=== PATIENT | male | born 2000 | race Caucasian/White ===

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

== ENCOUNTER 2022-07-23 15:33 | Emergency (ER) | payer MEDICAID ==
[~2022-07-23] VITALS: Ht 167.6 cm; Wt 85.0 kg
[2022-07-23] MEDS ORDERED: AZITTAB PO (18:51)
[2022-07-23 19:32] VITALS: BP 120/73
== END 2022-07-23 19:34 | disposition home or self-care (01) ==
LOC: ER 15:33
DX: J06.9 Acute upper respiratory infection, unspecified (principal); Z20.822 Contact with and (suspected) exposure to COVID-19
CPT/HCPCS: 36415; 71045; 87426; 87804

== ENCOUNTER 2022-08-28 09:12 | Emergency (ER) | payer MEDICAID ==
[~2022-08-28] VITALS: Ht 167.6 cm; Wt 84.8 kg
[~2022-08-28 09:12] MED LIST: AZITTAB PO
[2022-08-28 09:40] VITALS: BP 124/69
[2022-08-28] MEDS ORDERED: PRED20TA2 PO (09:45)
[2022-08-28] MEDS ORDERED: PROM1SOL4 PO (09:45)
== END 2022-08-28 10:01 | disposition home or self-care (01) ==
LOC: ER 09:12
DX: J06.9 Acute upper respiratory infection, unspecified (principal)

== ENCOUNTER 2022-11-02 10:50 | Emergency (ER) | payer MEDICAID, OTHER ==
[~2022-11-02] VITALS: Ht 172.7 cm; Wt 86.5 kg
[~2022-11-02 10:50] MED LIST changes: +PRED20TA2 PO; +PROM1SOL4 PO
[2022-11-02 11:27] VITALS: BP 133/79
[2022-11-02] MEDS ORDERED: methylPREDNISolone SOD SUCC 125 MG/2 ML VL IM ONE (11:30)
[2022-11-02] MEDS ORDERED: IBUPROFEN 800 MG TAB PO ONE ×2 (11:30→11:53)
[2022-11-02] MEDS ORDERED: cefTRIAXone SOD 1,000 MG VL IM ONE (11:45)
[2022-11-02] MEDS ORDERED: cefTRIAXone SOD 1,000 MG VL ONE (11:52)
[2022-11-02] MEDS ORDERED: IBUP800T27 PO (12:23)
[2022-11-02] MEDS ORDERED: PRED20TA2 PO (12:23)
[2022-11-02] MEDS ORDERED: AMOX875T3 PO (12:23)
== END 2022-11-02 12:32 | disposition home or self-care (01) ==
LOC: ER 10:50
DX: J01.90 Acute sinusitis, unspecified (principal)
CPT/HCPCS: 96372; 99283; J0696

== ENCOUNTER 2022-12-12 15:41 | Emergency (ER) | payer OTHER ==
[~2022-12-12] VITALS: Ht 170.2 cm; Wt 89.2 kg
[~2022-12-12 15:41] MED LIST changes: +AMOX875T3 PO; +IBUP800T27 PO
[2022-12-12] MEDS ORDERED: DexAMETHasone SOD PHOS 10MG/1ML VIAL INJ IM ONE (16:15)
[2022-12-12] MEDS ORDERED: BENZ100C19 PO (18:32)
[2022-12-12] MEDS ORDERED: IBUP800T26 PO (18:32)
[2022-12-12] MEDS ORDERED: LORA10CA7 PO (18:32)
[2022-12-12 18:50] VITALS: BP 140/65
== END 2022-12-12 18:50 | disposition home or self-care (01) ==
LOC: ER 15:49
DX: J03.90 Acute tonsillitis, unspecified (principal); B97.89 Other viral agents as the cause of diseases classified elsewhere; R07.89 Other chest pain; Z79.1 Long term (current) use of non-steroidal anti-inflammatories (NSAID); Z79.2 Long term (current) use of antibiotics; Z79.899 Other long term (current) drug therapy
CPT/HCPCS: 71046; 87070; 87880; 96372; 99284; J1100

== ENCOUNTER 2023-07-20 12:46 | Emergency (ER) | payer OTHER ==
[~2023-07-20] VITALS: Ht 165.1 cm; Wt 79.8 kg
[~2023-07-20 12:46] MED LIST changes: +BENZ100C19 PO; +IBUP-1455 PO; +IBUP-1456 PO; -IBUP800T27 PO; +LORA10CA PO
[2023-07-20 14:10] VITALS: BP 113/71; PULSE 130; RESP 18; TEMP 98.5; O2SAT 97
[2023-07-20 15:05] LABS: Eosinophils # (auto) 0 10 ^3/uL (0-0.8)
[2023-07-20 15:08] LABS: Basophils # (auto) 0.1 10 ^3/uL (0-0.2); Basophils % (auto) 0.7 % (0.0-2.0); Eosinophils % (auto) 0.4 % (0.0-7.0); Hemoglobin 16.5 g/dL (13.5-17.5); Lymphocytes # (auto) 0.8 10 ^3/uL (0.4-5.4); Lymphocytes % (auto) 9.9 % (10.0-50.0); Mean Corpuscular Hemoglobin 31.3 pg (28.0-32.0); Mean Corpuscular Hgb Conc. 33.6 g/dL (32.0-36.0); Mean Corpuscular Volume 93.2 fL (80.0-100.0); Monocytes # (auto) 1.3 10 ^3/uL (0-1.3); Monocytes % (auto) 16.5 % (0.0-12.0); Neutrophils # (auto) 5.5 10 ^3/uL (1.6-8.6); Neutrophils % (auto) 72.5 % (37.0-80.0); Nucleated Red Blood Cells % 0.1 %; Red Blood Cells 5.26 10^6/uL (4.5-5.90); Red Cell Distribution Width 12.7 % (11.8-14.3); White Blood Cell 7.6 10^3/uL (4.4-10.8)
[2023-07-20 15:35] LABS: Alanine Aminotransferase 27 U/L (7-40); Albumin 4.7 g/dL (3.2-4.8); Alkaline Phosphatase 62 U/L (46-116); Anion Gap 7 (5-15); Aspartate Aminotransferase 26 U/L (13-40); BUN/Creatinine Ratio 15.3 (10.0-20.0); Blood Urea Nitrogen 13 mg/dL (9-23); Calcium 8.6 mg/dL (8.7-10.4); Carbon Dioxide 30 mmol/L (20-30); Chloride 106 mmol/L (98-107); Glucose 87 mg/dL (74-106); Potassium 3.8 mmol/L (3.5-5.1); Sodium 143 mmol/L (136-145)
[2023-07-20 15:36] LABS: Bilirubin, Total 0.5 mg/dL (0.2-1.0); Total Protein 6.8 g/dL (5.7-8.2)
[2023-07-20] MEDS ORDERED: AUG875T PO (16:13)
[2023-07-20] MEDS ORDERED: ACET500T58 PO (16:13)
== END 2023-07-20 16:13 | disposition home or self-care (01) ==
LOC: ER 12:46
DX: J01.90 Acute sinusitis, unspecified (principal); R07.89 Other chest pain
CPT/HCPCS: 36415; 71045; 80053; 81002; 85025